=== PATIENT | female | born 1980 | race Caucasian/White ===

== ENCOUNTER 2017-01-31 09:55 | Emergency (ER) | payer OTHER ==
--- NOTE | 2017-01-31 10:39 | ER Document Report ---
ED General - General Chief Complaint: Vag Bleeding, +preg <12wks Stated Complaint: VAGINAL BLEEDING< 20 WEEKS Time Seen by Provider: 01/31/17 10:25 Notes: 26-year-old female whose last menstrual period was approximately 6 weeks ago presents the emergency department complaining of vaginal bleeding for the past 24 hours. States that yesterday she had a small amount of dark red blood when she wiped and a small clot, and since then she has had light pink vaginal bleeding, admits to a dull lower abdominal ache as well. Has not yet had an ultrasound, she is a , has not had any complications with prior pregnancies beyond needing a . Denies dizziness, weakness, dysuria. TRAVEL OUTSIDE OF THE [place] IN LAST 30 DAYS: No - Related Data Allergies/Adverse Reactions: No Known Allergies Allergy (Verified 01/31/17 10:08) Past Medical History - General Information source: Patient Last Menstrual Period: 06/2014 - Social History Smoking Status: Former Smoker Chew tobacco use (# tins/day): No Frequency of alcohol use: None Drug Abuse: None Family History: None Patient has suicidal ideation: No Patient has homicidal ideation: No Renal/ Medical History: Denies: Hx Peritoneal Dialysis Past Surgical History: Reports: Hx Section Review of Systems - Review of Systems Constitutional: No symptoms reported Female Genitourinary: See HPI, , Vaginal bleeding -: Yes All other systems reviewed and negative Physical Exam - Vital signs Vitals: Temp Pulse BP Pulse Ox 99.0 F 96 115/74 97 01/31/17 10:06 01/31/17 10:06 01/31/17 10:06 01/31/17 10:06 Interpretation: Normal - Notes Notes: GENERAL: Alert, interacts well. No acute distress. HEAD: Normocephalic, atraumatic EYES: Pupils equal, round and reactive to light, extraocular movements intact. ENT: Oral mucosa moist, tongue midline. NECK: Full range of motion, supple, trachea midline. LUNGS: Clear to auscultation bilaterally, no wheezes, rales or rhonchi, no respiratory distress. HEART: Regular rate and rhythm, no murmurs, gallops, rubs. ABDOMEN: Soft, nontender, nondistended, bowel sounds present in all 4 quadrants. EXTREMITIES: Moves all 4 extremities spontaneously, no edema, radial and dorsalis pedis pulses 2/4 bilaterally. No cyanosis. NEUROLOGICAL: Alert and oriented x3, normal speech. PSYCH: Normal mood, normal affect. SKIN: Warm, Dry, normal turgor, no rashes or lesions noted. Course - Re-evaluation Re-evalutation: 01/31/17 15:21 - Vital Signs Vital signs: Temp Pulse Resp BP Pulse Ox 98.9 F 72 18 122/67 99 01/31/17 15:19 01/31/17 15:19 01/31/17 15:19 01/31/17 15:19 01/31/17 15:19 - Laboratory Laboratory results interpreted by me: 01/31/17 01/31/17 10:45 10:45 Beta HCG, Quant 2195.10 H Urine Blood LARGE H Ur Leukocyte Esterase MODERATE H Discharge - Discharge Clinical Impression: Threatened miscarriage, Urinary tract infection during in first trimester Condition: Stable Disposition: HOME, SELF-CARE Additional Instructions: Today your quantitative hCG was 2195, this will need to be repeated in 2-3 days to make sure it increases. You may either have this performed at this hospital or by your TABLE G[employer] MANAGER. We saw gestational sac, you are 5 weeks and 2 days along. We were unable to see a heartbeat today. This is normal at this stage. Prescriptions: Nitrofurantoin/Nitrofuran Mac [Macrobid 100 mg Capsule] 1 tab PO BID #10 capsule Forms: Follow-Up Laboratory Testing Referrals: [facility] [Provider Group] - Follow up as needed
[2017-01-31 11:10] LABS: APPEARANCE,URINE SLIGHTLY-CLOUDY; BILIRUBIN,URINE NEGATIVE (NEGATIVE); GLUCOSE, URINE NEGATIVE (NEGATIVE); KETONES,URINE NEGATIVE (NEGATIVE); LEUKOCYTE ESTERASE,URINE MODERATE (NEGATIVE); NITRITE,URINE NEGATIVE (NEGATIVE); PROTEIN,URINE NEGATIVE (NEGATIVE); URINE SPECIFIC GRAVITY 1.023; UROBILINOGEN,URINE NEGATIVE mg/dL (<2.0)
--- NOTE | 2017-01-31 14:41 | RADIOLOGY REPORT (SQ) ---
EXAM DESCRIPTION: U/S OB TRANSVAG W/DOPPLER COMPLETED DATE/TIME: 01/31/2017 2:23 pm REASON FOR STUDY: vaginal bleeding, low abd aching, COMPARISON: None. TECHNIQUE: Transvaginal static and realtime grayscale images acquired of the pelvis. Additional tano cted spectral and color Doppler images recorded. All images stored on PACs. [facility] [place] LIMITATIONS: None. FINDINGS: No pole is identified. There is a very small gestational sac of the size suggesting a gestation of 5 weeks 2 days with an estimated date of delivery of 10/01/2017. UTERUS: 8.8 x 5.1 x 4.6 cm. No masses or anomalies. CERVICAL LENGTH: 2.2 cm. Closed. RIGHT ADNEXA: Normal ovary, 3.2 x 1.6 x 1.9 cm, with normal vascular flow. No adnexal free fluid. No adnexal masses. LEFT ADNEXA: Normal ovary, 3 x 2.7 x 1.9 cm, with normal vascular flow. No adnexal free fluid. No adnexal masses. FREE FLUID: None. OTHER: No other significant finding. IMPRESSION: There is what appears to be a gestational sac suggesting an gestation of 5 weeks 2 days with an estimated date of delivery of 10/01/2017. A pole is not evident. Follow-up as clinical ly indicated. Trimester of : First - 0 to 13 weeks. TECHNICAL DOCUMENTATION: JOB ID: [id number] [employer]- All Rights Reserved
[2017-01-31 15:20] VITALS: BP 122/67
== END 2017-01-31 15:59 | disposition home or self-care (01) ==
LOC: ER 09:55
DX: O20.0 Threatened abortion (principal); O23.40 Unspecified infection of urinary tract in pregnancy, unspecified trimester; O26.899 Other specified pregnancy related conditions, unspecified trimester; R10.30 Lower abdominal pain, unspecified; Z3A.00 Weeks of gestation of pregnancy not specified; Z87.891 Personal history of nicotine dependence
CPT/HCPCS: 36415; 76817; 81001; 84702; 86900; 86901; 93976; 99284

== ENCOUNTER → 2017-02-02 | Outpatient (CLI) | payer OTHER | LOC: LAB 01-31 16:03 | PROVIDERS: ATTEND Emergency Medicine | DX: O20.0 Threatened abortion (principal) | CPT/HCPCS: 36415; 84702 ==